=== PATIENT | female | born 1995 | race Caucasian/White ===

== ENCOUNTER 2023-08-05 06:00 | Day surgery (SDC) | payer BC, OTHER ==
[2023-08-01 12:51] VITALS: BMI 26.2
[2023-08-05] MEDS ORDERED: CeleCOXIB 100 MG CAP ONE (06:49)
[2023-08-05] MEDS ORDERED: Famotidine/PF 20 mg/2ml Vial ONE (06:50)
[2023-08-05] MEDS ORDERED: EPINEPHrine 1 MG/ML VIAL ONE (06:59)
[2023-08-05] MEDS ORDERED: Bupivacaine PF 0.5% 30 ML VIAL ONE (07:00)
[2023-08-05 07:04] LABS: Hematocrit 40.8 % (34.9-44.5); Hemoglobin 14.3 g/dL (12.0-15.5); Mean Corpuscular Hemoglobin 30.8 pg (27.0-33.0); Mean Corpuscular Volume 87.9 fl (81.6-98.3); Mean Platelet Volume 11.4 fl (7.4-10.4); Platelet Count 217 10x3/uL (150-450); RBC Distribution Width 12.1 % (11.5-14.5); Red Blood Cell (RBC) Count 4.64 10x6/uL (3.90-5.03); White Blood Cell (WBC) Count 6.4 10x3/uL (3.5-10.5)
[2023-08-05] MEDS ORDERED: fentaNYL 50 mcg/mL 1 mL Vial ONE ×3 (07:09→09:00)
[2023-08-05] MEDS ORDERED: Midazolam HCl 2 mg/2 ml Vial ONE (07:09)
[2023-08-05] MEDS ORDERED: Rocuronium Bromide 10 MG/ML (10ML VIAL) ONE (07:09)
[2023-08-05] MEDS ORDERED: PROPOFOL 20 ML ONE (07:09)
[2023-08-05] MEDS ORDERED: Lidocaine 1% PF 5 ML VIAL ONE (07:09)
[2023-08-05 07:16] LABS: BHCG - Serum Negative (NEGATIVE); Pregs Control Background? CLEAR/WHITE (CLR/WHITE); Pregs Control Bar Appear? YES (CONTROL BAR)
[2023-08-05] MEDS ORDERED: Sevoflurane 250 ML INH ANEST BOTTLE ONE (07:27)
[2023-08-05] MEDS ORDERED: CEFAZOLIN 2 GM VIAL ONE (07:29)
[2023-08-05] MEDS ORDERED: Dexamethasone 20 MG/5 ML VIAL ONE (07:51)
[2023-08-05] MEDS ORDERED: Ondansetron PF 4 MG/2 ML Vial ONE (07:51)
[2023-08-05] MEDS ORDERED: Ketorolac Tromethamine 30 MG (1 mL) VIAL ONE (09:07)
[2023-08-05] MEDS ORDERED: SUGAMMADEX SODIUM 200 MG/2 ML VIAL ONE (09:14)
[2023-08-05] MEDS ORDERED: Meperidine HCl/PF 25 MG (1 mL) VIAL ONE (09:38)
[2023-08-05 10:19] LABS: Bilirubin Neg (Negative); Blood, Urine Negative (Negative); Glucose, Urine (Dipstick) Normal (Negative); Ketone, Urine Negative (Negative); Leukocyte 25 (Negative); Nitrite Negative (Negative); Protein, Urine (Dipstick) Negative (Neg-Trace); Urobilinogen Normal mg/dL (Less than 2)
[2023-08-05] MEDS ORDERED: HYDROcodone/Acetaminophen 5/325 mg Tablet ONE (10:26)
[2023-08-05 10:50] LABS: Clarity Clear (Clear); RBC/HPF 0-3 HPF (0-3)
[2023-08-05 10:51] LABS: Bacteria/HPF 1+ HPF (None Seen)
[2023-08-05 10:52] LABS: Transitional Epithelial 0-3 HPF (None Seen)
[2023-08-05] MEDS ORDERED: Ondansetron ODT 4 MG TAB ONE (11:41)
== END 2023-08-05 11:50 | disposition home or self-care (01) ==
LOC: CSHSDC 06:00
PROVIDERS: ATTEND Student in an Organized Health Care Education/Training Program
PROC: 0UB14ZZ Excision of Left Ovary, Percutaneous Endoscopic Approach (ICD-10-PCS; principal; 2023-08-05)
DX: D27.1 Benign neoplasm of left ovary (principal); D25.9 Leiomyoma of uterus, unspecified; N80.9 Endometriosis, unspecified; F90.9 Attention-deficit hyperactivity disorder, unspecified type; F41.9 Anxiety disorder, unspecified; F31.9 Bipolar disorder, unspecified; G89.18 Other acute postprocedural pain; Z87.891 Personal history of nicotine dependence; Z79.899 Other long term (current) drug therapy; Z88.0 Allergy status to penicillin; Z88.6 Allergy status to analgesic agent; Z88.2 Allergy status to sulfonamides
CPT/HCPCS: 36415; 81001; 84703; 85027; 86850; 86900; 86901; 88305; C1889; J0171; J0665; J1100; J1885; J2175; J2250; J2405; J2704; J3010; Q0162; Q9968; S0028

== ENCOUNTER 2023-08-07 10:04 | Emergency (ER) | payer BC, OTHER | END 2023-08-07 10:53 | disposition home or self-care (01) | LOC: CSHERS 10:04 | DX: J95.89 Other postprocedural complications and disorders of respiratory system, not elsewhere classified (principal); J98.11 Atelectasis | CPT/HCPCS: 71045 ==